=== PATIENT | male | born 1990 | race Caucasian/White ===

== ENCOUNTER 2020-02-13 12:43 | Outpatient (REF) | payer OTHER, SELFPAY | END 2020-02-13 12:44 | disposition home or self-care (01) | LOC: HO.LAB 12:43 | PROVIDERS: PCP Nurse Practitioner Family; Visit Provider Internal Medicine | DX: Z20.828 Contact with and (suspected) exposure to other viral communicable diseases (principal) | CPT/HCPCS: 87635 ==

== ENCOUNTER 2020-03-10 07:06 | Emergency (ER) | payer OTHER, SELFPAY ==
[2020-03-10 07:11] VITALS: BP 144/97; PULSE 94; RESP 16; TEMP 36.6; O2SAT 98; BMI 24.4
--- NOTE | 2020-03-10 07:14 | ED.SKABFB ---
HPI - Skin/Abscess/Foreign Bdy General Chief complaint: Wound/Laceration Stated complaint: cyst on neck Time Seen by Provider: 03/10/20 07:14 Source: patient Mode of arrival: ambulatory Limitations: no limitations History of Present Illness HPI narrative: Patient has had an increasing abscess on the left side of his neck MD complaint: abscess/boil Onset (ago): day(s) Tetanus up to date: yes Severity: mild Related Data Allergies Allergy/AdvReac Type Severity Reaction Status Date / Time clindamycin [CLINDAMYCIN] Allergy Intermediate RASH Unverified 01/16/20 17:23 vancomycin [VANCOMYCIN] Allergy Intermediate RASH, Unverified 01/16/20 17:23 itchy, hot procaine [From NOVOCAIN] Allergy Unknown UNKNOWN Unverified 01/16/20 17:23 Clindamycin HCl Allergy Unknown rash Uncoded 12/04/17 00:00 Novocain Allergy Unknown unsure Uncoded 12/04/17 00:00 Review of Systems Constitutional: Constitutional: Reports no additional constitutional complaints Eyes: Eyes: Reports no additional eye complaints ENT: Denies dizziness Cardiovascular: Cardiovascular: Reports no additional cardiovascular complaints Respiratory: Respiratory: Reports as per HPI Gastrointestinal: Gastrointestinal: Reports no additional gastrointestinal complaints Musculoskeletal: Musculoskeletal: Reports no additional musculoskeletal complaints Integumentary/Breasts: Skin/Breast: Denies rash Neurologic: Reports system reviewed and no additional complaints, except as documented, Denies dizziness and Denies Sensory deficit (Neuro) Psychiatric: Psychiatric: Denies anxiety [facility] Social History Social History Advance Directives: No Advance Directives Information Provided: No Physical Exam Vital Signs: Vital Signs: Last Vital Signs Temp 98 F 03/10/20 07:11 Pulse 94 03/10/20 07:11 Resp 16 03/10/20 07:11 BP 144/97 H 03/10/20 07:11 Pulse Ox 98 03/10/20 07:11 Body Mass Index 24.4 Const: General: healthy appearing Nutritional Appearance: average body habitus Orientation/consciousness: oriented to person and patient oriented x3 Limitations: no limitations HENMT: Head: Yes normal to inspection Ears: external ears normal General nose exam: Normal external nose present Mouth: Normal oral and palatal mucosa present and oropharynx normal Throat: Yes posterior oropharynx normal Eyes: General: appearance normal, both eyes and all related structures Neck: Other: supple, left 3cm abscess on lateral neck Neck: Yes normal visual inspection Chest: Chest palpation & inspection: normal inspection of the chest Resp: Auscultation: clear to auscultation bilaterally Cardio: Jugular venous distension: no JVD Rate: regular rate Rhythm: regular rhythm Heart sounds: S1 normal heart sound present and S2 normal heart sound present GI: Inspection: Yes normal to inspection Palpation (GI): Soft to palpation, nontender and No hepatosplenomegaly present Auscultation: normal bowel sounds : General: Yes no CVA tenderness Back/Spine/Pelvis: Back: no CVA tenderness Skin: General skin exam: no rashes or lesions noted Neuro: General: oriented to person and patient oriented x3 Cranial nerves: Yes CN's II-XII intact bilaterally Motor exam (neuro): 5/5 motor strength present throughout Sensory Exam: No Sensory deficit (Neuro) Extrem: General: Yes normal to inspection Psych: Appearance: grossly normal Course Course Course Narrative: Patient prepped and draped in sterile fashion. !% epi with lidocaine used for anesthesia. 11 blade used, pus removed, packing placed. Patient tolerated procedure well Procedures Abscess I/D Site: neck Side (if applicable): left MDM - Skin/Abscess/Foreign Bdy MDM Narrative Medical decision making narrative: patient drained will dc home Discharge Plan Discharge Clinical Impression: Abscess Patient Disposition: Home, Self-Care Instructions: Abscess (ED) Additional Instructions: No work until tomorrow, Remove packing in 48 hours in the shower Referrals: Hernesto De Jesus, WEB CONTENT DIRECTOR-BC [Primary Care Provider] - 2 days Stand Alone Forms: Work/School Release
[2020-03-10] MEDS: Lidocaine HCl 1%/Epi 1:100,000 20 ML VIAL INFILTRATI (07:34)
== END 2020-03-10 09:09 | disposition home or self-care (01) ==
PROVIDERS: Emergency Provider Emergency Medicine; PCP Nurse Practitioner Family
DX: L02.11 Cutaneous abscess of neck (principal); M54.2 Cervicalgia; Z23 Encounter for immunization
CPT/HCPCS: 10060; 90471; 90715; 99283; 99284

== ENCOUNTER 2020-05-08 09:44 | Outpatient (REF) | payer OTHER, SELFPAY | END 2020-05-08 09:45 | disposition home or self-care (01) | LOC: HO.LAB 09:44 | PROVIDERS: Visit Provider Internal Medicine | DX: Z20.822 Contact with and (suspected) exposure to COVID-19 (principal) | CPT/HCPCS: 36415; C9803; U0003 ==

== ENCOUNTER 2021-01-27 09:07 | Outpatient (REF) | payer OTHER, SELFPAY | END 2021-01-27 09:08 | disposition home or self-care (01) | LOC: HO.LAB 09:07 | PROVIDERS: PCP Nurse Practitioner Family; Visit Provider Internal Medicine | DX: Z20.822 Contact with and (suspected) exposure to COVID-19 (principal) | CPT/HCPCS: C9803; U0003; U0005 ==

== ENCOUNTER 2021-12-27 12:45 | Emergency (ER) | payer OTHER, SELFPAY ==
[2021-12-27 13:21] VITALS: BP 152/87; PULSE 104; RESP 18; TEMP 36.8; O2SAT 99; BMI 25.1
--- NOTE | 2021-12-27 16:10 | ED_ITS ---
HPI - General Adult General Chief complaint: Extremity Problem Stated complaint: Bee sting T-1 swollen R arm Time Seen by Provider: 12/27/21 14:41 Source: patient Mode of arrival: ambulatory Limitations: no limitations History of Present Illness HPI narrative: Patient is a 31 year old male presenting to the emergency department today with right arm swelling. Patient states that he was stung by a bee on his right arm, last night at around 6pm, and ever since his right arm has been swollen. Patient states that he has tried benadryl at home but the swelling doesn't seem to be going on. Patient denies any throat swelling or soreness. Patient denies any dizziness, lightheadedness, abdominal pain, nausea, vomiting, fever, chills, blurry vision, double vision, loss of vision, chest pain, difficulty breathing, shortness of breath, back pain, night sweats, pain with urination, increased urinary frequency, increased urinary urgency, blood in his urine or stool, syncope or a near syncopal episode, recent trauma or falls, bowel incontinence, bladder incontinence, bowel retention, bladder retention, or any other complaints at this time. Onset (ago): day(s) (1) Location: right and upper extremity Radiation: non-radiation Severity: mild Severity scale (1-10): 1 Pain Consistency: constant Relieving factors: none Exacerbating factors: none Associated symptoms: denies other symptoms Treatments prior to arrival: none Related Data Previous Rx's Medication Instructions Recorded prednisone 20 mg tablet 20 mg PO DAILY 12 days #26 tabs 12/27/21 Allergies Allergy/AdvReac Type Severity Reaction Status Date / Time clindamycin [CLINDAMYCIN] Allergy Intermediate RASH Unverified 01/16/20 17:23 vancomycin [VANCOMYCIN] Allergy Intermediate RASH, Unverified 01/16/20 17:23 itchy, hot procaine [From NOVOCAIN] Allergy Unknown UNKNOWN Unverified 01/16/20 17:23 Clindamycin HCl Allergy Unknown rash Uncoded 12/04/17 00:00 Novocain Allergy Unknown unsure Uncoded 12/04/17 00:00 Review of Systems Constitutional: Constitutional: Reports no additional constitutional complaints, Denies chills, Denies fever(s) and Denies night sweats Eyes: Eyes: Reports no additional eye complaints, Denies blurry vision, Denies change in vision, Denies diplopia, Denies eye discharge, Denies loss of vision and Denies eye pain ENT: Denies dizziness Cardiovascular: Cardiovascular: Reports no additional cardiovascular complaints, Denies chest pain, Denies lightheadedness, Denies Loss of Consciousness and Denies dyspnea Respiratory: Respiratory: Reports no additional respiratory complaints and Denies dyspnea Gastrointestinal: Gastrointestinal: Reports no additional gastrointestinal complaints, Denies abdominal pain, Denies melena, Denies hematochezia, Denies change in bowel habits and Denies change in stool character Genitourinary: Genitourinary: Reports no additional male genitourinary complaints, Denies hematuria, Denies oliguria, Denies difficulty urinating, Denies dysuria, Denies urinary frequency, Denies urinary hesitancy, Denies urinary incontinence and Denies urinary urgency Musculoskeletal: Musculoskeletal: Reports no additional musculoskeletal complaints, Denies numbness and Denies tingling Comments: right forearm swelling Neurologic: Denies dizziness, Denies loss of vision, Denies numbness and Denies tingling Psychiatric: Psychiatric: Reports no additional psychiatric complaints Endocrine: Endocrine: Reports no additional endocrine complaints Hematologic/Lymphatic: Hematologic/Lymphatic: Reports no additional hematologic/lymphatic complaints Allergic/Immunologic: Allergic/Immunologic: Reports no additional allergic/immunologic complaints PMFSH Past Medical History Attestation statement: The following information was validated with the patient. Source: old records reviewed Social History Social History Advance Directives: No Advance Directives Information Provided: No Physical Exam ED Vital Signs: Vital Signs - 24 hr 12/27/21 13:21 Temperature 98.3 F Pulse Rate 104 H Respiratory Rate 18 Blood Pressure 152/87 H Pulse Oximetry 99 Oxygen Delivery Method Room Air BMI result Body Mass Index 25.1 Const General: cooperative, no acute distress, alert and awake Nutritional Appearance: well nourished Orientation/consciousness: patient oriented x3 Limitations: no limitations HENMT Head: Yes normal to inspection and Yes atraumatic Ears: hearing grossly normal bilaterally and external ears normal General nose exam: Normal external nose present, no nasal discharge noted and no epistaxis Face and sinus: Yes normal facial exam, No abrasion and No laceration Mouth: Normal oral and palatal mucosa present, no drooling and no muffled voice Eyes General: appearance normal, both eyes and all related structures Periorbital: periorbital findings normal Eyelids: Yes eyelids normal Conjunctivae: conjunctivae normal Pupils: Equal, round and reactive pupils present EOM: EOMs intact bilaterally Neck Neck: Yes normal visual inspection, Yes full ROM and Yes no lymphadenopathy Chest Chest palpation & inspection: normal inspection of the chest Resp Effort & Inspection: normal respiratory effort and able to speak in complete sentences Auscultation: clear to auscultation bilaterally Cardio Rate: regular rate Rhythm: regular rhythm GI Inspection: Yes normal to inspection Neuro General: patient oriented x3 and moves all extremities Cranial nerves: Yes Equal, round and reactive pupils present Cognition (Neuro): normal cognition Motor exam (neuro): 5/5 motor strength present throughout Sensory Exam: Normal double simultaneous stimulation for sensation Coordination: [id number] test normal Extrem Other: right forearm swelling General: Yes full ROM and Yes capillary refill normal Psych Appearance: grossly normal Mental Status: mental status grossly normal Affect: normal affect Attitude: cooperative Thought process: Normal thought process present Thought content: Normal thought content present Insight: Good insight present (Psych) Medical Decision Making [facility] Narrative Medical decision making narrative: Patient is a 31 year old male presenting to the emergency department today with right forearm swelling. Patient's physical exam showed right forearm swelling. I explained my physical exam findings to the patient. I answered all questions asked by the patient. Patient received IM Solu-Medrol which he stated helped his symptoms significantly. I stressed the importance of the patient taking his medication as prescribed. I stressed the importance of the patient following up with his primary care provider. I stressed the importance of the patient returning to the emergency department immediately if his symptoms were to worsen or if he were to develop any dizziness, shortness of breath, difficulty breathing, chest pain, blurry vision, loss of vision, nausea, vomiting, abdominal pain, fever, chills, back pain, or any other complaints. Patient verbalized agreement and understanding with this treatment plan and discharge. Differential Diagnosis Differential Diagnosis: allergic reaction Medical Records Medical records reviewed: Yes I reviewed the patient's medical records. Discharge Plan Discharge Clinical Impression: Allergic reaction Patient Disposition: Home, Self-Care Instructions: General Allergic Reaction (ED) Additional Instructions: Follow up with your primary care provider. Return to the emergency department immediately if your symptoms worsen or if you develop any dizziness, shortness of breath, difficulty breathing, chest pain, blurry vision, loss of vision, nausea, vomiting, abdominal pain, fever, chills, back pain, or any other complaints. Prescriptions: New prednisone 20 mg tablet 20 mg PO DAILY 12 Days Qty: 26 0RF Rx Instructions: Take 3 tablets for 5 days THEN; Take 2 tablets for 4 days THEN; Take 1 tablet for 3 days Referrals: Hernesto De Jesus FNP-KEYLA [Primary Care Provider] - Interventions: ED Discharge Assessment Last Done: 12/27/21 16:31 Discharge Date/Time: 12/27/21 16:31 Print Language: Irish
[2021-12-27] MEDS: methylPREDNISolone Sod Succ 125 MG/2 ML VIAL 60 MG IM (16:26)
== END 2021-12-27 16:31 | disposition home or self-care (01) ==
PROVIDERS: Emergency Provider Emergency Medicine; PCP Nurse Practitioner Family
DX: T63.441A Toxic effect of venom of bees, accidental (unintentional), initial encounter (principal); R22.31 Localized swelling, mass and lump, right upper limb; Y92.9 Unspecified place or not applicable
CPT/HCPCS: 96372; 99282; 99284; J2930

== ENCOUNTER 2023-06-15 16:51 | Emergency (ER) | payer OTHER, SELFPAY ==
--- NOTE | ~2023-06-15 | US_ITS ---
EXAMINATION: US VENOUS ULTRASOUND WITH DOPPLER LOWER EXTREMITY, RIGHT CLINICAL INFORMATION: Right lower extremity edema. Focal lump/mass. Increasing distal thigh mass. COMPARISON: None available. TECHNIQUE: Ultrasound of the deep veins is performed from the hip to the calf with compression sonography and color and pulse Doppler assessment. Spectral analysis with color-flow imaging is performed. FINDINGS: There is normal venous compression and respiratory variation and augmented flow. The visualized common femoral vein, superficial femoral vein, profunda femoral vein, popliteal vein, and the trifurcation region shows no evidence of deep venous thrombosis. There is no significant popliteal fossa cyst. Focal prominence of the subcutaneous fat with increased echogenicity along the lateral aspect of the distal thigh in the region of the patient's complaint. Findings could represent a focal infectious/inflammatory process, consistent with cellulitis. No organized fluid collection or discrete soft tissue mass. If the patient's symptoms persist, follow-up ultrasound in 5 days 7 days might be of value to exclude proximal propagation from a non-visualized calf vein. US/US venous duplex LE RT IMPRESSION: No DVT demonstrated in the right lower extremity. Focal prominence of subcutaneous fat with increased echogenicity which could represent cellulitis in the lateral aspect of the lower thigh. No organized fluid collection or abscess formation.
[2023-06-15 18:31] VITALS: BP 154/80; PULSE 117; RESP 18; TEMP 36.9; O2SAT 97; BMI 24.1
--- NOTE | 2023-06-15 18:33 | ED_ITS ---
HPI - General Adult General Chief complaint: Extremity Problem Stated complaint: blood blot in left? Time Seen by Provider: 06/15/23 19:45 Source: patient Mode of arrival: ambulatory Limitations: no limitations History of Present Illness HPI narrative: Patient is a 33-year-old male who presents emergency department for evaluation. He reports a red rash to the bilateral lower extremities that began 1 week ago initially noticed on the inner thighs and spreading down the legs. It spares the feet in the genitalia, does not appear elsewhere on the body aside from legs. He reports it was initially itchy for the 1st couple of days but this has subsided. He denies any pus or drainage from the rash. When asked, he does state that he has a hot tub that we uses rather frequently. He also presents for evaluation of a lump to the right lateral distal thigh, painful and tender to touch, worse wall weight-bearing and walking. 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 Denies any numbness or tingling, denies any fevers or chills, denies any recent travel or possible insect bites. Denies concern for sexually transmitted infections. Related Data Previous Rx's Medication Instructions Recorded prednisone 20 mg tablet 20 mg PO DAILY 12 days #26 tabs 12/27/21 cephalexin 500 mg capsule 500 mg PO QID #28 caps 06/15/23 ciprofloxacin HCl 500 mg tablet 500 mg PO BID #14 tabs 06/15/23 Allergies Allergy/AdvReac Type Severity Reaction Status Date / Time clindamycin [CLINDAMYCIN] Allergy Intermediate RASH Verified 06/15/23 18:37 vancomycin [VANCOMYCIN] Allergy Intermediate RASH, Verified 06/15/23 18:37 itchy, hot procaine [From NOVOCAIN] Allergy Unknown UNKNOWN Verified 06/15/23 18:37 Clindamycin HCl Allergy Unknown rash Uncoded 12/04/17 00:00 Novocain Allergy Unknown unsure Uncoded 12/04/17 00:00 Review of Systems 2 Review of Systems: Yes all other systems are reviewed and are negative PMFSH Past Medical History Attestation statement: The following information was validated with the patient. Source: old records reviewed Social History Social History Advance Directives: No Advance Directives Information Provided: No Physical Exam ED Vital Signs: Vital Signs - 24 hr 06/15/23 18:31 06/15/23 19:56 Temperature 98.5 F 98.5 F Pulse Rate 117 H 118 H Respiratory Rate 18 16 Blood Pressure 154/80 H 157/103 H Pulse Oximetry 97 97 Oxygen Delivery Method Room Air Room Air BMI result Body Mass Index 24.1 Appearance: Alert.?Oriented to person, place and time. No acute distress.?Normal affect. Eyes: Pupils equal, round and reactive to light.? ENT: Pharynx normal.?? Neck: Normal inspection.? Neck supple.?? CVS: Heart sounds normal. Normal heart rate and rhythm.? Pulses normal.?? Respiratory: No respiratory distress.? Lung sounds clear to auscultation bilaterally?? Abdomen: Soft and non-tender. Normoactive bowel sounds. Skin: Skin warm and dry.? Normal skin color.? ? Extremities: No lower extremity edema.? No calf ttp?right lateral distal thigh with localized swelling, possible early ecchymosis, tenderness upon palpation is exacerbated with flexion and extension of the knee Neuro: Moves all extremities spontaneously. Sensation intact bilaterally. No focal neuro deficits. Ambulates with normal steady gait. Course Course Course Narrative: This is a rapid medical exam: Additional HPI, ROS, PE not included below will be deferred to primary provider. Patient is a 33-year-old male presenting to the ED with complaint of erythematous rash to legs since yesterday, left hand swelling since yesterday which has since improved, and right leg pain with an area of swelling to lateral distal upper leg. 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 Plan: labs including ESR, CRP, tick panel, RPR, u/s RLE Medical Decision Making Medical Decision Making MDM Narrative: Patient is a 33-year-old male who presents emergency department for evaluation of a rash to the bilateral lower extremities and a painful lump to the right lateral distal thigh as per HPI. Rash concerning for possible hot tub folliculitis versus vasculitis. Has leukocytosis of 15.7, mildly elevated CRP 1.8. Tick panel in syphilis testing is pending. Patient also examined by ED attending Dr. Erickson, who favors folliculitis as etiology. Will cover with Cipro and Keflex. Right lateral distal thigh concerning for ecchymosis of the muscle, resolved. Consistent with lipoma. Duplex ultrasound was obtained prior to my assumption of care which does not reveal evidence of DVT. Stable for discharge home, outpatient follow-up with primary care provider discussed worrisome signs and symptoms that would warrant re-evaluation emergency department. All questions answered. Stable for discharge. Differential Diagnosis Differential Diagnoses: The differential diagnosis associated with the presentation includes (As noted above) Admission/Observation Consideration of admission/observation: Escalation of care including admission/observation considered (See narrative above) Lab Data MDM Lab Attestation statement: I reviewed the patient's lab results. (See narrative above) 06/15/23 19:34 06/15/23 19:34 Labs: Lab Results 06/15/23 06/15/23 Range/Units 19:34 19:55 WBC 15.7 H (4.8-10.8) X10*3/uL RBC 5.03 (4.60-5.80) X10*6/uL Hgb 15.7 (14.0-18.0) g/dl Hct 43.9 (42.0-52.0) % MCV 87.3 (80.0-98.0) fL MCH 31.2 (27.0-33.0) pg MCHC 35.8 (31.0-36.0) g/dl RDW 11.7 (11.0-16.0) % Plt Count 286 (160-400) X10*3/uL MPV 8.3 L (9.4-12.4) fL Immature Gran % (Auto) 0.2 (0.0-0.4) % Neut % (Auto) 68.6 (45-73) % Lymph % (Auto) 21.4 (20-40) % [place] % (Auto) 7.1 (2-11) % Eos % (Auto) 2.4 (0-4) % Baso % (Auto) 0.3 (0-2) % Lymph # (Auto) 3.4 (1.2-4.9) X10*3/uL [place] # (Auto) 1.1 (0.1-1.2) X10*3/uL Eos # (Auto) 0.4 (0.0-0.4) X10*3/uL Baso # (Auto) 0.1 (0.0-0.2) X10*3/uL Abs Immat Gran (auto) 0.03 (0.00-0.03) X10*3/uL Absolute Neuts (auto) 10.8 H (2.0-8.3) x10*3/uL Absolute Nucleated RBC 0.000 (0.0-0.012) X10*3/uL Nucleated RBC % (auto) 0.0 (0.0-0.2) /100WBC ESR 2 (0-15) MM/HR PT 11.8 (11.1-13.3) SEC INR 1.0 (0.9-1.1) Sodium 140 (135-145) mmol/L Potassium 4.0 (3.3-5.1) mmol/L Chloride 103 (96-108) mmol/L Carbon Dioxide 27 (22-29) mmol/L Anion Gap 14 (12-20) BUN 19 H (9-16) mg/dL Creatinine 1.19 (0.5-1.4) mg/dL Estim Creat Clear Calc 95.7 Estimated GFR > 60 Random Glucose 108 (60-115) mg/dL Calcium 9.5 (8.4-10.2) mg/dL Total Bilirubin 0.5 (0.0-1.0) mg/dL AST 16 (5-37) U/L ALT 20 (0-40) U/L Alkaline Phosphatase 40 (39-117) U/L C-Reactive Protein 1.18 H (< or = 0.50) mg/dL Total Protein 7.5 (6.5-8.0) g/dL Albumin 4.5 (3.5-5.0) g/dL Urine Color Yellow Urine Appearance Clear Urine pH 5.5 (5.0-9.0) Ur Specific [place] >= 1.030 H (1.005-1.025) Urine Protein Negative (Neg-Trace) mg/dL Urine Glucose (UA) Negative (Negative) mg/dL Urine Ketones Negative (Negative) mg/dL Urine Blood Negative (Negative) Urine Nitrite Negative (Negative) Ur Leukocyte Esterase Negative (Negative) Prescription Management I considered prescription management with: Antibiotic Discharge Plan Discharge Clinical Impression: Folliculitis, Muscle strain Patient Disposition: Home, Self-Care Instructions: Folliculitis (ED), R.I.C.E. Treatment (ED) Additional Instructions: The rashes most concerning for folliculitis, for this prescriptions for antibiotics have been sent to your pharmacy. Please complete the entire course, do not skip any doses, do not stop taking them early even if the rash subsides. Tick-borne illness testing and syphilis testing is pending at this time, should anything result as positive you will receive a phone call from the hospital. Painful area to the bottom of the thighs most concerning for a muscular injury, please be sure to rest, apply ice, elevate your leg, You can take ibuprofen 200 mg, 3 tablets (600mg) every 6-8 hours as needed for pain, in addition to Tylenol 500 mg, 2 tablets (1,000mg) every 4-6 hours as needed for pain, but not to exceed 3 doses daily (3,000mg).? Contact your primary care provider to arrange for a follow-up visit. Prescriptions: New ciprofloxacin HCl 500 mg tablet 500 mg PO BID Qty: 14 0RF cephalexin 500 mg capsule 500 mg PO QID Qty: 28 0RF No Action prednisone 20 mg tablet 20 mg PO DAILY 12 Days Qty: 26 0RF Rx Instructions: Take 3 tablets for 5 days THEN; Take 2 tablets for 4 days THEN; Take 1 tablet for 3 days Referrals: Hernesto De Jesus, GENERAL OPERATIONS AGENT-BC [Primary Care Provider] -
[2023-06-15 19:38] LABS: MANUAL DIFF FLAG NO
[2023-06-15 19:40] LABS: Basophils Absolute Auto 0.1 X10*3/uL (0.0-0.2); Basophils Percent Auto 0.3 % (0-2); Eosinophils Absolute Auto 0.4 X10*3/uL (0.0-0.4); Eosinophils Percent Auto 2.4 % (0-4); Hematocrit 43.9 % (42.0-52.0); Hemoglobin 15.7 g/dl (14.0-18.0); Imm Gran Abs Auto 0.03 X10*3/uL (0.00-0.03); Imm Gran Pct Auto 0.2 % (0.0-0.4); Lymphocytes Absolute Auto 3.4 X10*3/uL (1.2-4.9); Lymphocytes Percent Auto 21.4 % (20-40); Mean Corpuscular HGB Conc 35.8 g/dl (31.0-36.0); Mean Corpuscular Hemoglobin 31.2 pg (27.0-33.0); Mean Corpuscular Volume 87.3 fL (80.0-98.0); Mean Platelet Volume 8.3 fL (9.4-12.4); Monocytes Absolute Auto 1.1 X10*3/uL (0.1-1.2); Monocytes Percent Auto 7.1 % (2-11); Neutrophils Absolute Auto 10.8 x10*3/uL (2.0-8.3); Neutrophils Percent Auto 68.6 % (45-73); Platelet Count 286 X10*3/uL (160-400); Red Blood Count 5.03 X10*6/uL (4.60-5.80); Red Cell Distribution Width 11.7 % (11.0-16.0); White Blood Count 15.7 X10*3/uL (4.8-10.8)
--- NOTE | 2023-06-15 19:40 | MHC.EDTECH ---
Patient blood drawn and sent to lab .
[2023-06-15 19:46] LABS: Prothrombin Time 11.8 SEC (11.1-13.3)
[2023-06-15 19:56] VITALS: BP 157/103; PULSE 118; RESP 16; TEMP 36.9; O2SAT 97
[2023-06-15 19:56] LABS: Alanine Aminotransferase 20 U/L (0-40); Albumin Level 4.5 g/dL (3.5-5.0); Alkaline Phosphatase 40 U/L (39-117); Anion Gap 14 (12-20); Aspartate Amino Transferase 16 U/L (5-37); Bilirubin Total 0.5 mg/dL (0.0-1.0); Blood Urea Nitrogen 19 mg/dL (9-16); C Reactive Protein 1.18 mg/dL (< or = 0.50); Calcium 9.5 mg/dL (8.4-10.2); Carbon Dioxide 27 mmol/L (22-29); Chloride 103 mmol/L (96-108); Creatinine Clr Calc Pharmacy 95.7; Estimated Glomerular Filt Rate > 60; Glucose Random 108 mg/dL (60-115); Sodium 140 mmol/L (135-145); Total Protein 7.5 g/dL (6.5-8.0)
[2023-06-15 20:04] LABS: Appearance Urine Clear; Color Urine Yellow; Glucose Urine UA Negative (Negative); Leukocyte Esterase Urine Negative (Negative); Nitrite Urine Negative (Negative); PH 5.5 (5.0-9.0); Specific Gravity - Urine >= 1.030 (1.005-1.025); Urine Blood Negative (Negative); Urine Ketones Negative (Negative); Urine Protein Negative (Neg-Trace)
[2023-06-15 20:32] LABS: Erythrocyte Sedimentation Rate 2 MM/HR (0-15)
[2023-06-15 21:13] VITALS: BP 152/92; PULSE 101; RESP 14; TEMP 36.9; O2SAT 97
[2023-06-15] MEDS: cephALEXin 500 MG CAPSULE PO (21:48)
[2023-06-16 03:59] LABS: Syphilis Screen Nonreactive (Nonreactive)
[2023-06-20 02:13] LABS: A. Phagocytphilium DNA,RT-PCR NOT DETECTED (NOT DETECTED); Babesia Microti DNA, RT-PCR NOT DETECTED (NOT DETECTED); Borrelia Miyamotoi,DNA RT-PCR NOT DETECTED (NOT DETECTED); E.Chaffeensis DNA RT-PCR NOT DETECTED (NOT DETECTED); Lyme(Borrelia ssp)DNA RT-PCR NOT DETECTED (NOT DETECTED)
== END 2023-06-15 22:07 | disposition home or self-care (01) ==
PROVIDERS: Registered Nurse Emergency; Emergency Provider Emergency Medicine; PCP Nurse Practitioner Family
DX: L73.8 Other specified follicular disorders (principal); M79.651 Pain in right thigh; S76.911A Strain of unspecified muscles, fascia and tendons at thigh level, right thigh, initial encounter; X50.9XXA Other and unspecified overexertion or strenuous movements or postures, initial encounter; Y93.01 Activity, walking, marching and hiking; Y92.414 Local residential or business street as the place of occurrence of the external cause; Y99.0 Civilian activity done for income or pay
CPT/HCPCS: 36415; 80053; 81003; 85025; 85610; 85652; 86140; 86780; 87468; 87469; 87478; 87484; 87798; 93971; 99283; 99284

== ENCOUNTER 2023-12-27 10:13 | Outpatient (AMB) | payer OTHER, SELFPAY ==
[2023-12-27 10:14] VITALS: BP 130/72; PULSE 78; O2SAT 98; BMI 24.8
--- NOTE | 2023-12-27 10:14 | A.OFFPC_ITS ---
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: No Accompanied by: Self / Same As Patient Allergies clindamycin [CLINDAMYCIN] Allergy (Intermediate, Verified 12/27/23 10:16) RASH vancomycin [VANCOMYCIN] Allergy (Intermediate, Verified 12/27/23 10:16) RASH, itchy, hot procaine [From NOVOCAIN] Allergy (Unknown, Verified 12/27/23 10:16) UNKNOWN Clindamycin HCl Allergy (Unknown, Uncoded 12/04/17 00:00) rash Novocain Allergy (Unknown, Uncoded 12/04/17 00:00) unsure Medication List - Last Reconciled 12/27/23 by JUAN JOSÉ Palacios No Known Home Meds Tobacco use date assessed: 12/27/23 Dental Screening Dental Screen Date: 12/27/23 Did you have a dental visit in the last 12 months?: Yes Did you have a dental problem in the last 6 months where you did not have access to dental care?: No Was dental information given to patient?: Patient has dentist HPI Re establish care/Intermittent leg swelling HPI Details Pt is here for a PE. Will order labs. Frequent cysts, sending antibio tic and prednisone. [facility] Surgical History No pertinent past surgical history Family History Mother No problems noted. 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 1. Little interest or pleasure in doing things: not at all 2. Feeling down, depressed, or hopeless: not at all 3. Trouble falling or staying asleep, or sleeping too much: not at all 4. Feeling tired or having little energy: several days 5. Poor appetite or overeating: not at all 6. Feeling bad about yourself - or that you are a failure or have let yourself or your family down: not at all 7. Trouble concentrating on things, such as reading the newspaper or watching television: not at all 8. Moving or speaking so slowly that other people could have noticed. Or the opposite - being so fidgety or restless that you have been moving around a lot more than usual: not at all 9. Thoughts that you would be better off or of hurting yourself in some way: not at all Total score: 1 Depression Screening Interpretation: Negative Depression Screening Done: Yes 30081 - PHQ-9 Billing: Yes Source: Developed by Drs. Ricki Green, Joselin Cage, Sandoval Golden and colleagues, with an educational mateus from [employer]. Thrive Questionnaire Date Thrive assessed: 12/27/23 I am a: Patient What is your living situation today?: I have a steady place to live Within the past 12 months, did the food you bought not last and you didn't have the money to get more?: Never true Within the past 12 months, did you worry whether your food would run out before you got money to buy more?: Never true Do you have trouble paying for medicines?: No Do you have trouble getting transportation to medical appointments?: No Do you have trouble paying your heating and electricity bill?: No Do you have trouble taking care of your child, family member or friend?: No Do you have trouble with day-to-day activities such as bathing, preparing meals, shopping, managing finances, etc.?: No Are you currently unemployed and looking for a job?: No Are you interested in more education?: No Please select the resources that you would like help with: None Currently or been in a relationship where the following occur: No concerns reported THRIVE Score: 0 AUDIT C Alcohol Use Questionnaire (AUDIT-C) 1. How often do you have a drink containing alcohol?: 2-3 times a week 2. How many drinks containing alcohol do you have on a typical day when you are drinking?: 7 to 9 3. How often do you have six or more drinks on one occasion?: Weekly Total Score: 9 Score Reviewed/Action Taken: Yes FEROZ-7 AMB Questionnaire FEROZ-7 Date FEROZ - 7 assessed: 12/27/23 Feeling nervous, anxious, or on edge: 0 = Not at all Not being able to stop or control worryin = Not at all Worrying too much about different things: 0 = Not at all Trouble relaxin = Not at all Being so restless that it is hard to sit still: 0 = Not at all Becoming easily annoyed or irritable: 1 = Several days Feeling afraid as if something awful might happen: 0 = Not at all Total FEROZ-7 score (0-4 normal; 5-9 mild; 10-14 moderate; 15-21 severe): 1 Source: Developed by Drs. Ricki Green, Joselin Cage, Sandoval Golden and colleagues, with an educational mateus from [employer]. FEROZ-7 Assessment Billing FEROZ-7 Assessment Tool: FEROZ-7 Assessment 97008 Review of Systems Const Reports as per HPI Eyes Denies blurry vision ENT Denies vertigo, Denies dizziness and Denies sore throat Card Denies chest pain at rest, Denies chest pain with activity, Denies diaphoresis, Denies dyspnea and Denies dyspnea on exertion Resp Denies cough, Denies dyspnea, Denies dyspnea on exertion and Denies wheezing GI Denies abdominal pain, Denies melena, Denies hematochezia, Denies constipation, Denies diarrhea and Denies loose stools Denies hematuria Musc Denies numbness and Denies tingling Skin/Breast Denies lesions Neuro Denies vertigo, Denies dizziness, Denies numbness and Denies tingling Psych Denies anxiety, Denies depression, Denies homicidal ideation, Denies suicidal ideation and Denies other (substance abuse) Aller/Immun Denies wheezing Physical exam (Primary Care) Vital Signs: Last Vital Signs Pulse 78 12/27/23 10:14 BP 130/72 12/27/23 10:14 Pulse Ox 98 12/27/23 10:14 Oxygen Delivery Method Room Air 12/27/23 10:14 BMI result Body Mass Index 24.8 Tobacco/Smoking Status: Tobacco use Status Tobacco use date assessed 12/27/23 12/27/23 10:18 Patient Tobacco Use Status Current everyday Tobacco 12/27/23 10:31 e-Cigarette/Vaping Use Never Used 12/27/23 10:30 PHQ-9: PHQ-9 Score PHQ-9: Total score 1 12/27/23 10:49 Depression Screening Interpretation: Negative Thrive Assessment: Date of Thrive Assessment Date Thrive assessed 12/27/23 12/27/23 10:18 Currently or been in a relationship where the following occur: No concerns reported Const General: cooperative Nutritional Appearance: well nourished Orientation/consciousness: patient oriented x3 HENMT Head: Yes normal to inspection, Yes normocephalic and Yes atraumatic Ears: TM's normal bilaterally Eyes General: appearance normal, both eyes and all related structures Alignment and Position: alignment normal and position normal Neck Neck: Yes normal visual inspection, Yes no lymphadenopathy and Yes supple Resp Effort & Inspection: normal respiratory effort Auscultation: clear to auscultation bilaterally Cardio Rate: regular rate Rhythm: regular rhythm Heart sounds: S1 normal heart sound present, S2 normal heart sound present and no murmurs GI Palpation (GI): Soft to palpation and nontender Auscultation: normal bowel sounds Male General Exam: Yes normal external exam Penis: normal penis Scrotum: scrotum normal, testes descended bilaterally and no inguinal hernias Testes: no testicular mass Skin Other: left upper buttocks with slightly raised, indurated, cystic lesion. No surrounding erythema or tenderness noted with palpation Rashes: no rashes Neuro General: patient oriented x3 Romberg Test: Negative Psych Appearance: grossly normal Mental Status: mental status grossly normal Speech and movement: Normal speech and movement present Affect: normal affect Attitude: cooperative Thought process: Normal thought process present Thought content: Normal thought content present Insight: Good insight present (Psych) Judgement: Good judgement present (Psych) Assessment and Plan Assessment & Plan (1) Physical exam: Code(s): Z00.00 - Encounter for general adult medical examination without abnormal findings Plan: Labs ordered (2) Skin abscess: Code(s): L02.91 - Cutaneous abscess, unspecified Plan: antibiotic sent Plan The patient agreed to the use of a medical economics consultant for this encounter. Scribed for JUAN JOSÉ Woods by Mojgan Rodriguez medical economics consultant, on 12/27/2023 at 10:50 EST. Orders: Orders Comprehensive [place]. Panel Fast Today Z00.00 - Encounter for general adult medical examination without abnormal findings Lipid Panel Today Z00.00 - Encounter for general adult medical examination without abnormal findings Complete Blood Count Auto Diff Today Z00.00 - Encounter for general adult medical examination without abnormal findings TSH reflex Free T4 Today Z00.00 - Encounter for general adult medical examination without abnormal findings UA CC w/rflx Micro + Cult Today Z00.00 - Encounter for general adult medical examination without abnormal findings Medications: New prednisone 50 mg PO DAILY 6 days 6 tabs 1RF cephalexin 500 mg PO BID 10 days 20 caps 1RF Discontinued prednisone Take 3 tablets for 5 days THEN; Take 2 tablets for 4 days THEN; Take 1 tablet for 3 days Discontinued Reason: Patient Completed Course 20 mg PO DAILY 12 days 26 tabs 0RF cephalexin Discontinued Reason: Patient Completed Course 500 mg PO QID 28 caps 0RF ciprofloxacin HCl Discontinued Reason: Patient Completed Course 500 mg PO BID 14 tabs 0RF Coding Level of Care Code New Pt Prev Care 18-39yr([id number] Diagnoses Physical exam Z00.00 Skin abscess L02.91 Additional Codes FEROZ-7 Assessment Billing - FEROZ-7 Assessment Tool: FEROZ-7 Assessment 45606 ([id number])
== END 2023-12-27 10:58 | disposition home or self-care (01) ==
PROVIDERS: Visit Provider Nurse Practitioner Family
DX: Z00.00 Encounter for general adult medical examination without abnormal findings (principal); L02.91 Cutaneous abscess, unspecified
CPT/HCPCS: 99385